=== PATIENT | male | born 1965 | race Caucasian/White ===

== ENCOUNTER 2021-08-27 18:59 | Emergency (ER) | payer SELFPAY ==
[~2021-08-27] VITALS: Ht 165.1 cm; Wt 65.9 kg
[~2021-08-27 18:59] MED LIST: CIPR250T30 PO; HYDR-2761 PO; LINE600T12 PO; METR500T PO
--- NOTE | 2021-08-28 00:17 | PHYS DOC ---
Past Medical History Past Medical History: No Pertinent History Past Surgical History: No Surgical History Smoking Status: Current Every Day Smoker Alcohol Use: Occasionally General Adult EDM: Chief Complaint: DENTAL PROBLEM HPI: HPI: Patient is a 56-year-old male that presents today with dental pain with facial swelling. Patient states about 1 week ago he broke a front tooth, and over the last 24 to 48 hours he has noted increased facial pain and swelling and pain in his upper jaw area. She does state he has chills he does not have a documented fever. Patient does not have a regular dentist, he says that he has had multiple dental caries and abscesses over the years. Review of Systems: Review of Systems: Constitutional: chills. [] Eyes: Denies change in visual acuity. [] HENT: Facial swelling and upper left dental pain Respiratory: Denies cough or shortness of breath. [] Cardiovascular: Denies chest pain or edema. [] GI: Denies abdominal pain, nausea, vomiting, bloody stools or diarrhea. [] : Denies dysuria. [] Musculoskeletal: Denies back pain or joint pain. [] Integument: Denies rash. [] Neurologic: Denies headache, focal weakness or sensory changes. [] Endocrine: Denies polyuria or polydipsia. [] Lymphatic: Denies swollen glands. [] Psychiatric: Denies depression or anxiety. [] Heart Score: C/O Chest Pain: N/A Risk Factors: Risk Factors: DM, Current or recent (<one month) smoker, HTN, HLP, family history of CAD, obesity. Risk Scores: Score 0 - 3: 2.5% MACE over next 6 weeks - Discharge Home Score 4 - 6: 20.3% MACE over next 6 weeks - Admit for Clinical Observation Score 7 - 10: 72.7% MACE over next 6 weeks - Early Invasive Strategies Current Medications: Current Medications Medications (Trade) Dose Ordered Sig/Richard Route PRN Reason Start Time Stop Time Status Last Admin Dose Admin Oxycodone/ Acetaminophen (Percocet 5/325) 2 tab 1X ONCE PO 08/28/21 00:30 08/28/21 00:31 DC 08/28/21 00:59 Clindamycin HCl (Cleocin) 300 mg 1X ONCE PO 08/28/21 00:30 08/28/21 00:31 DC 08/28/21 00:59 Allergies: Allergies: Allergies Coded Allergies Type Severity Reaction Last Updated Verified vancomycin Allergy Unknown Hives 09/22/19 Yes Physical Exam: PE: Constitutional: Well developed, well nourished, mild distress, non-toxic appearance. [] HENT: Normocephalic, atraumatic, multiple broken teeth noted, facial swelling noted in left facial area near nose. gum line is swollen, and red. Eyes: PERRLA, EOMI, conjunctiva normal, no discharge. [] Neck: Normal range of motion, no tenderness, supple, no stridor. [] Cardiovascular:Heart rate regular rhythm, no murmur [] Lungs & Thorax: Bilateral breath sounds clear to auscultation [] Abdomen: Bowel sounds normal, soft, no tenderness, no masses, no pulsatile masses. [] Skin: Warm, dry, no erythema, no rash. [] Back: No tenderness, no CVA tenderness. [] Extremities: No tenderness, no cyanosis, no clubbing, ROM intact, no edema. [] Neurologic: Alert and oriented X 3, normal motor function, normal sensory function, no focal deficits noted. [] Psychologic: Affect normal, judgement normal, mood normal. [] Current Patient Data: Vital Signs: Vital Signs Date Time Temp Pulse Resp B/P (MAP) Pulse Ox O2 Delivery O2 Flow Rate FiO2 08/28/21 00:04 98.3 93 18 183/119 (140) 99 Room Air 98.3 EKG: EKG: [] Radiology/Procedures: Radiology/Procedures: [] Course & Med Decision Making: Course & Med Decision Making Pertinent Labs and Imaging studies reviewed. (See chart for details) 0110 Blood pressure is 165/97. Patient states his pain is better. Patient instructed to follow-up with a dentist KRISTIN. Patient is also given a list of community health clinics that he can follow-up with for treatment of his blood pressure as well. Patient will also be educated on smoking cessation. Patient is instructed to get the antibiotics filled and to take the entire course of antibiotics. Patient verbalized understanding and agrees with plan of care. Campos Disclaimer: Campos Disclaimer: This electronic medical record was generated, in whole or in part, using a voice recognition dictation system. Departure Departure Impression: Primary Impression: Dental abscess Disposition: HOME / SELF CARE / HOMELESS Condition: STABLE Referrals: NO PCP (PCP) Patient Instructions: Dental Abscess, Smoking Cessation Additional Instructions: Clindamycin take 1 tablet every 8 hours for the next 10 days. Hydrocodone take 1 to 2 tablets every 6 hours as needed for severe pain, use with caution may cause drowsiness do not drive or operate heavy machinery while taking this Motrin [id number] as labeled directed for mild to moderate pain. Follow-up with the dental clinic as soon as possible for management of your dental caries Return to the emergency department if you have increased swelling pain and redness in the cheek area that goes up into the orbital area. Follow-up with one of the clinics provided as well for treatment of your high blood pressure. Scripts Hydrocodone Bit/Acetaminophen (HYDROCODONE-APAP 5-325 ) 1 Tab Tablet 1 TAB PO PRN Q6HRS PRN for PAIN, #20 TAB 0 Refills Prov: LEXY [employer] MANAGER 08/28/21 Clindamycin Hcl (CLINDAMYCIN HCL) 300 Mg Capsule 1 CAP PO TID for dental abscess, #30 CAP Prov: LEXY [employer] MANAGER 08/28/21 LEXY [employer] MANAGER Aug 28, 2021 00:17
[2021-08-28] MEDS ORDERED: oxyCODONE/APAP 5/325 1 TAB TABLET PO ONE (00:30)
[2021-08-28] MEDS ORDERED: CLINDAMYCIN HCL 150 MG CAPSULE. PO ONE (00:30)
[2021-08-28] MEDS ORDERED: CLIN-94 PO (01:15)
[2021-08-28] MEDS ORDERED: HYDR-2761 PO (01:15)
[2021-08-28 01:33] VITALS: BP 162/93
== END 2021-08-28 01:39 | disposition home or self-care (01) ==
LOC: ER 18:59
DX: K04.7 Periapical abscess without sinus (principal); F17.200 Nicotine dependence, unspecified, uncomplicated; Z88.1 Allergy status to other antibiotic agents
CPT/HCPCS: 99283